=== PATIENT | female | born 1995 | race Caucasian/White ===

== ENCOUNTER 2017-09-14 12:21 | Emergency (ER) | payer MEDICAID ==
[~2017-09-14] VITALS: Ht 165.1 cm; Wt 61.2 kg
[2017-09-14 12:46] VITALS: BP 115/80
[2017-09-14 13:02] VITALS: BP 115/80
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
== END 2017-09-14 13:00 | disposition home or self-care (01) ==
LOC: EMR 13:00
DX: S09.21XA Traumatic rupture of right ear drum, initial encounter (principal); Y04.0XXA Assault by unarmed brawl or fight, initial encounter; Y92.9 Unspecified place or not applicable
CPT/HCPCS: 99282

== ENCOUNTER 2018-04-12 16:31 | Emergency (ER) | payer MEDICAID ==
[~2018-04-12] VITALS: Ht 162.6 cm; Wt 59.0 kg
--- NOTE | 2018-04-12 17:17 | Emergency Room Report ---
History of Present Illness General Chief Complaint: Lower Extremity Injury Source: Patient Present Illness HPI 20-year-old female patient presents ER complaining of left foot pain. Reports that 2 days ago she dropped a 45 pound weight on her foot. Reports pain with ambulation since that time. Reports bruising and swelling over her left foot. Denies ankle or calf pain. Reports has been icing her foot. Denies taking any pain medication. Reports she has been working at both of her jobs which require her to be on her feet. Denies fever, chest pain, shortness of breath. Allergies: Coded Allergies: No Known Allergies (Unverified , 09/14/17) Patient History Past Medical History: see triage record Last Menstrual Period: unknown Reviewed Nursing Documentation: PMH: Agreed; PSxH: Agreed Nursing Documentation-PMH Past Medical History: No History, Except For Review of Systems All Other Systems: negative except mentioned in HPI Physical Exam Vital Signs Date Time Temp Pulse Resp B/P (MAP) Pulse Ox O2 Delivery O2 Flow Rate FiO2 04/12/18 16:59 98.5 70 16 103/72 96 Room Air 98.4 Sp02 EP Interpretation: reviewed, normal General Appearance: well appearing, no apparent distress, alert, GCS 15, non- toxic Head: normocephalic, atraumatic Eyes: bilateral eye normal inspection, bilateral eye PERRL ENT: hearing grossly normal, normal pharynx, no angioedema, normal voice, uvula midline, moist mucus membranes Neck: full range of motion Respiratory: lungs clear, normal breath sounds, no rhonchi, no respiratory distress, no accessory muscle use, no wheezing, speaking full sentences Cardiovascular #1: regular rate, rhythm, no edema Cardiovascular #2: 2+ dorsalis pedis (R), 2+ dorsalis pedis (L) Musculoskeletal: back normal, digits/nails normal, gait/station normal, normal range of motion, no calf tenderness, Krissy's Sign negative, swelling - proximal left forefoot, ecchymosis, other - NVI, cap refill less than 2 seconds, negative syndesmotic squeeze test, no tenderness to palpation over posterior lateral malleolus, no erythema, tender - dorsum of left forefoot over metatarsals 2-4 Neurologic: alert, oriented x3, responsive, motor strength/tone normal, sensory intact Psychiatric: mood/affect normal Skin: no rash Medical Decision Making PA Attestation Dr. Barr is my supervising Physician whom patient management has been discussed with. Diagnostic Impression: Primary Impression: Foot contusion ER Course Pt. presents to the ED c/o left foot pain. Ddx considered but are not limited to fracture, sprain, strain, contusion, dislocation. No erythema, no warmth to touch, no fever, nontoxic appearing, low suspicion for septic joint. Vital signs: are WNL, pt. is afebrile Ordered X-ray and pain medication. ER COURSE Provided with pain medication. An X-ray of the left foot shows acute fracture per the preliminary reading. Likely contusion causing pain symptoms. Bret wrap was applied to the right foot and was checked afterwards by me showing good alignment and support with distal neurovascular functioning intact. Crutches provided. Patient instructed on RICE method: rest, ice, compression, elevation. Patient instructed on rest, ice and heat. Patient instructed to be WBAT Work note provided. Contact information for orthopedic urgent care provided, follow-up with urgent care if unable to followup with primary care provider and get referral to clinical data specialist. Followup with primary care provider. Discuss referral to ortho/pain management/ PT as needed. Discuss further imaging with MRI/CT as needed. DISCHARGE: -Rx provided for Ibuprofen for pain symptoms. At this time pt. is stable for d/c to home. Patient is resting comfortably, in no acute distress, nontoxic appearing, talking without difficulty. Will provide printed patient care instructions, and any necessary prescriptions. Patient instructed to follow with primary care provider in 3 - 5 days and to request further follow-up as needed. Care plan and follow up instructions have been discussed with the patient prior to discharge. Take medications as directed. Patient questions asked and answered. Patient reports understanding and agreement to treatment plan. ER precautions given, patient instructed to return to ER immediately for any new or worsening of symptoms. - Please note that this Emergency Department Report was dictated using [employer] Foundation[employer] room agent technology software, occasionally this can lead to erroneous entry secondary to interpretation by the dictation equipment. Other X-Ray Diagnostic Results Other X-Ray Diagnostic Results : X-Ray ordered: foot left # of Views/Limited Vs Complete: 3 View Indication: Pain EP Interpretation: Yes PA Xray: Interpretation reviewed, by supervising MD, and agrees with findings. Interpretation: no dislocation, no soft tissue swelling, no fractures Impression: No acute disease PA Scribedilma Text Mo Woo PA-C Last Vital Signs Date Time Temp Pulse Resp B/P (MAP) Pulse Ox O2 Delivery O2 Flow Rate FiO2 04/12/18 16:59 98.5 70 16 103/72 96 Room Air 98.4 Status: improved Disposition: HOME, SELF-CARE Condition: Stable Scripts Ibuprofen* (MOTRIN*) 600 Mg Tablet 600 MG ORAL Q8H PRN for For Pain, #30 TAB 0 Refills Prov: Wei Woo 04/12/18 Patient Instructions: Foot Contusion Additional Instructions: Patient instructed to follow up with primary care provider and discuss further referral to orthopedics/physical therapy/pain management as needed. If unable to followup with PCP, followup with orthopedic urgent care in 5-7 days , call to schedule appointment. Patient instructed on RICE method: rest, ice, compression, elevation. Patient instructed to WBAT. Take medications as directed. Patient questions asked and answered. ER precautions given, patient instructed to return to ER immediately for any new or worsening of symptoms. [facility] [address] [facility] [address] [facility], [address] [email or web address] Wei Woo Apr 12, 2018 17:17
[2018-04-12] MEDS ORDERED: Acetaminophen 500mg (ES) tab ORAL ONE (17:30)
[2018-04-12] MEDS ORDERED: IBUPROFEN600 MG ORAL (18:22)
[2018-04-12 18:40] VITALS: BP 103/72
--- NOTE | 2018-04-13 12:15 | Diagnostic Imaging Report ---
Indication: Foot pain Comparison: None Findings: 3 views of the left foot were obtained. No acute fractures, malalignment, erosions or periostitis are identified. Soft tissues are unremarkable. Impression: No acute findings
== END 2018-04-12 18:40 | disposition home or self-care (01) ==
LOC: EMR 18:09
DX: S90.32XA Contusion of left foot, initial encounter (principal); W22.8XXA Striking against or struck by other objects, initial encounter
CPT/HCPCS: 99282

== ENCOUNTER 2019-03-13 21:09 | Emergency (ER) | payer MEDICAID ==
[~2019-03-13] VITALS: Ht 160 cm; Wt 59.0 kg
[~2019-03-13 21:09] MED LIST: IBUPROFEN600 MG ORAL; NKM
[2019-03-13 21:45] VITALS: BP 115/73
--- NOTE | 2019-03-13 21:45 | NUR ---
ED Nurse Note: Patient walked into ED c/o upper abdominal pain that she first felt while at the gym, describes it as a sharp pressure like pain, denies any nausea or diarrhea, happened while exercising, rates her pain a 6/10 pain. patient is alert adn roiented x4, ambulatory with a steady gait, VSS
--- NOTE | 2019-03-13 22:21 | Emergency Room Report ---
History of Present Illness General Chief Complaint: Abdominal Pain Source: Patient Present Illness HPI Is a 23-year-old female with no past medical history. She presents with complaint abdominal pain. Onset was acute. She was at the gym standing after she did some leg press. She felt swelling and a pop in her left upper quadrant area. Afterward to start spreading throughout the whole abdomen. Then it became severe sharp pain. Pain is 9 out of 10. No nausea no vomiting. No fever chills. Made it worse. Palpation made it worse. Sitting still made it better. Allergies: Coded Allergies: No Known Allergies (Unverified , 09/14/17) Patient History Past Medical History: see triage record, old chart reviewed Past Surgical History: none Pertinent Family History: none Social History: Denies: smoking Last Menstrual Period: 02/26/19 Now: No Immunizations: other Reviewed Nursing Documentation: PMH: Agreed; PSxH: Agreed Nursing Documentation-PMH Past Medical History: No History, Except For Review of Systems Eye: Denies: eye pain, blurred vision ENT: Denies: ear pain, nose congestion, throat swelling Respiratory: Denies: cough, shortness of breath Cardiovascular: Denies: chest pain, palpitations Gastrointestinal: Reports: abdominal pain; Denies: diarrhea, nausea, vomiting Musculoskeletal: Denies: back pain, joint pain Skin: Denies: rash Neurological: Denies: headache, numbness Endocrine: Denies: increased thirst, increased urine Hematologic/Lymphatic: Denies: easy bruising All Other Systems: negative except mentioned in HPI Physical Exam Vital Signs Date Time Temp Pulse Resp B/P (MAP) Pulse Ox O2 Delivery O2 Flow Rate FiO2 03/13/19 21:37 97.5 70 18 115/73 (87) 98 Room Air vitals normal Sp02 EP Interpretation: reviewed, normal General Appearance: well appearing, no apparent distress, alert Head: normocephalic, atraumatic Eyes: bilateral eye PERRL, bilateral eye EOMI ENT: hearing grossly normal, normal pharynx Neck: full range of motion, supple, no meningismus Respiratory: chest non-tender, lungs clear, normal breath sounds Cardiovascular #1: regular rate, rhythm, no murmur Gastrointestinal: normal bowel sounds, no mass, no organomegaly, no bruit, non- distended, tenderness - diffuse Musculoskeletal: back normal, gait/station normal, normal range of motion Neurologic: alert, oriented x3 Psychiatric: anxious Medical Decision Making Diagnostic Impression: Primary Impression: Abdominal pain Qualified Codes: R10.84 - Generalized abdominal pain ER Course Abdominal pain. Most likely a muscle strain working out evidence of any internal injury. No infection. Will discharge home. CT/MRI/US Diagnostic Results CT/MRI/US Diagnostic Results : Imaging Test Ordered: CT abdomen pelvis Impression Read by radiologist. Negative. Last Vital Signs Date Time Temp Pulse Resp B/P (MAP) Pulse Ox O2 Delivery O2 Flow Rate FiO2 03/13/19 21:37 97.5 70 18 115/73 (87) 98 Room Air Status: improved Disposition: HOME, SELF-CARE Condition: Stable Scripts Ibuprofen* (MOTRIN*) 600 Mg Tablet 600 MG ORAL THREE TIMES A DAY, #30 TAB 0 Refills Prov: Abdelrahman Llanos MD 03/13/19 Hydrocodone/Acetaminophen 5-325* (HYDROCODONE/ACETAMINOPHEN 5-325*) 1 Each Tablet 1 TAB ORAL Q6H PRN for For Pain, #10 TAB 0 Refills Prov: Abdelrahman Llanos MD 03/13/19 Additional Instructions: Follow-up with your doctor in 7 days. No work out for a week. Return if symptoms worsen. Abdelrahman Llanos MD Mar 13, 2019 22:21
[2019-03-13] MEDS ORDERED: Ketorolac 30mg Inj IV ONE (22:30)
[2019-03-13] MEDS ORDERED: Morphine Sulfate 4mg/ml Inj (IV USE ONLY) IVP ONE (22:30)
[2019-03-13 22:58] LABS: BASOPHILS % (AUTO) 0.7 % (0.0-2.0); EOSINOPHILS % (AUTO) 1.9 % (0.0-3.0); HEMATOCRIT 43.3 % (37.0-47.0); HEMOGLOBIN 16.4 G/DL (12.0-16.0); LYMPHOCYTES % (AUTO) 35.5 % (20.0-45.0); MEAN CORPUSCULAR VOLUME 89 FL (80-99); NEUTROPHILS % (AUTO) 55.9 % (45.0-75.0); PLATELET COUNT 199 K/UL (150-450); RED BLOOD COUNT 4.88 M/UL (4.20-5.40); WHITE BLOOD COUNT 7.4 K/UL (4.8-10.8)
[2019-03-13 23:02] LABS: APPEARANCE,URINE CLEAR; BILIRUBIN, URINE NEGATIVE (NEGATIVE); COLOR,URINE PALE YELLOW; GLUCOSE, URINE (UA) NEGATIVE (NEGATIVE); KETONES,URINE 1+ (NEGATIVE); LEUKOCYTE ESTERASE ,URINE NEGATIVE (NEGATIVE); NITRITE,URINE NEGATIVE (NEGATIVE); PH,URINE 5 (4.5-8.0); PROTEIN,URINE NEGATIVE (NEGATIVE); UROBILINOGEN,URINE NORMAL MG/DL (0.0-1.0)
[2019-03-13 23:19] LABS: ANION GAP 12 mmol/L (5-15); BLOOD UREA NITROGEN 15 mg/dL (7-18); CALCIUM 9.5 MG/DL (8.5-10.1); CARBON DIOXIDE 25 MMOL/L (21-32); CHLORIDE 103 MMOL/L (98-107); CREATININE 0.8 MG/DL (0.55-1.30); POTASSIUM 3.6 MMOL/L (3.5-5.1); SODIUM 140 MMOL/L (136-145)
[2019-03-13 23:23] LABS: ALANINE AMINOTRANSFERASE 23 U/L (12-78); ALBUMIN 4.6 G/DL (3.4-5.0); ALBUMIN/GLOBULIN RATIO 1.2 (1.0-2.7); ALKALINE PHOSPHATASE 53 U/L (46-116); ASPARTATE AMINO TRANSFERASE 23 U/L (15-37); BILIRUBIN,TOTAL 0.8 MG/DL (0.2-1.0)
--- NOTE | 2019-03-13 23:32 | Diagnostic Imaging Report ---
Indication: Abdominal pain Technique: Spiral acquisitions obtained through the abdomen and pelvis. No oral contrast utilized, per emergency room physician request No IV contrast utilized, per referring physician request.. Multiplanar reconstructions were generated. Total dose length product 615.55 mGycm. CTDIvol(s) 11.66 mGy. Dose reduction achieved using automated exposure control Comparison: None Findings: The appendix is normal. There is a small amount of free pelvic fluid. No evidence of diverticulosis or diverticulitis. No small bowel distention. No free intraperitoneal gas. Distal esophagus, stomach, duodenum are unremarkable. Lack of IV contrast limits assessment of the the solid organs. The liver, gallbladder, bile ducts, pancreas, spleen, adrenals, kidneys are unremarkable. No pelvic mass or adenopathy. No retroperitoneal or mesenteric mass or adenopathy. Equivocal mild bladder wall thickening, most likely an artifact of under distention The included lung bases are clear. The bones are unremarkable. Impression: Trace free pelvic fluid, most likely physiologic Equivocal mild bladder wall thickening, most likely artifact of under distention, cystitis possible Otherwise negative This agrees with the preliminary interpretation provided overnight by [facility] teleradiology service. The CT scanner at [facility] is accredited by the [employer] and the scans are performed using protocols designed to limit radiation exposure to as low as reasonably achievable to attain images of sufficient resolution adequate for diagnostic evaluation.
[2019-03-13] MEDS ORDERED: IBUPROFEN600 MG ORAL (23:52)
[2019-03-13] MEDS ORDERED: HYDROCODON-ACE1 EA15 ORAL (23:52)
[2019-03-13 23:55] VITALS: BP 112/70
--- NOTE | 2019-03-13 23:55 | NUR ---
ER DISCHARGE NOTE: Patient is cleared to be discharged per ERMD, pt is aox4, on room air, with stable vital signs. pt was given dc and prescription instructions, pt was able to verbalize understanding, pt id band and iv site removed without complications. pt is able to ambulate with steady gait. pt took all belongings.
== END 2019-03-13 23:55 | disposition home or self-care (01) ==
LOC: EMR 22:28
DX: R10.84 Generalized abdominal pain (principal)
CPT/HCPCS: 36415; 74176; 80053; 81003; 81025; 83690; 85025; 96374; 96375; J1885; J2270; J2405; Z7502; 99284

== ENCOUNTER 2019-08-08 21:06 | Emergency (ER) | payer MEDICAID ==
[~2019-08-08] VITALS: Ht 165.1 cm; Wt 59.0 kg
[~2019-08-08 21:06] MED LIST changes: +HYDROCODON-ACE1 EA15 ORAL
[2019-08-08 22:15] VITALS: BP 114/72
--- NOTE | 2019-08-08 22:15 | NUR ---
ED Nurse Note: Pt walked into ED from home for c/o deviated septum s/p mechanical fall at 0500 today. Pt states she fell onto her face this morning. Septum is deviated to the L at this time and swelling noted. Pt is able to breathe normally through nose, no SOB. Pt is aaox4, no cardiac or respiratory distress noted. Will continue to monitor.
--- NOTE | 2019-08-08 22:50 | Diagnostic Imaging Report ---
Indication: Orbital and maxillofacial trauma and pain Technique: Continuous helical transaxial imaging of the orbits/maxillofacial structures obtained without intravenous contrast administration. Coronal 2-D reformats were also obtained. Study obtained in a Siemens sensation [address] Automatic Exposure Control was utilized. Total Dose length Product (DLP): [address] Dose Index Volume (CTDIvol): 25 mGy Comparison: None Findings: There is a nondisplaced fracture of the anterior wall the right maxillary sinus (series 7/#24-25). This may be old. Please correlate clinically. There is an old fracture of the left zygomatic arch. There is an old injury of the right zygomatic-maxillary suture, which is normally not visualized. The orbits appear normal. There is a mucosal thickening within the right ethmoid sinus and within the maxillary sinuses bilaterally. There is under pneumatization of the mastoid air cells bilaterally. There is sclerosis of the mastoid bone and opacification of the residual maxillary air cells as well as both middle ear cavities. Findings consistent with mastoiditis and otitis media. This is likely an acute on chronic. IMPRESSION: Apparent nondisplaced fracture of the anterior wall the right maxillary sinus, the zygomaticomaxillary suture and the left zygomatic arch. These are likely old. Please correlate clinically. Bilateral otitis media/acute on chronic mastoiditis as described above. Chronic sinusitis. The CT scanner at [facility] is accredited by the [employer] and the scans are performed using dose optimization techniques as appropriate to a performed exam including Automatic Exposure control.
[2019-08-08] MEDS ORDERED: IBUPROFEN600 MG ORAL (23:21)
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
[2019-08-08 23:45] VITALS: BP 114/72
--- NOTE | 2019-08-08 23:45 | NUR ---
ER DISCHARGE NOTE: Patient is cleared to be discharged per ERMD, pt is aox4, on room air, with stable vital signs. pt was given dc and prescription instructions, pt was able to verbalize understanding, pt id band removed. pt is able to ambulate with steady gait. pt took all belongings.
== END 2019-08-08 23:45 | disposition home or self-care (01) ==
LOC: EMR 22:05
DX: S00.33XA Contusion of nose, initial encounter (principal); S02.401A Maxillary fracture, unspecified side, initial encounter for closed fracture; W19.XXXA Unspecified fall, initial encounter; Y92.9 Unspecified place or not applicable
CPT/HCPCS: 70486; Z7502; 99284

== ENCOUNTER 2020-03-04 17:53 | Emergency (ER) | payer MEDICAID ==
[~2020-03-04] VITALS: Ht 165.1 cm; Wt 63.0 kg
[2020-03-04 18:04] VITALS: BP 122/71
--- NOTE | 2020-03-04 18:06 | NUR ---
ED Nurse Note: pt walked in to ER from home due to Lt rib cage pain 02/11 x 10 days. pt denied injury. pt aao x4 and ambulatory. skin clean and intact. calm and cooperative. no cardiac or pulmonary distress noted at this time. pt denied chest pain, SOB, cough. pt refused to wear hospital gown.
--- NOTE | 2020-03-04 18:41 | Emergency Room Report ---
History of Present Illness General Chief Complaint: Pain Source: Patient Present Illness HPI 24 YO female presents to the ED C/O 02/11 in severity left anterior rib /sternal area pain that is sharp and intermittent and has increased in frequency x 1.5 weeks. Pt. reports pmhx of hypothyroidism. She denies cough, bloody sputum, vomiting, trauma/fall, fevers or chills. Pt. denies bruises or erythema. She denies rash. She denies hx of asthma or smoking. Pt. reports intermittent pain with deep breath. She last felt pain this am. Pt reports she has not taken any OTC medications for her symptoms. She denies cardiac hx. She denies familial cardiac hx. She denies SOB. She denies recent travel or immobilization. She denies estrogen use. Allergies: Coded Allergies: No Known Allergies (Unverified , 09/14/17) COVID-19 Screening Contact w/high risk pt: No Experienced COVID-19 symptoms?: No COVID-19 Testing performed CHILD WATCH ATTENDANT: No Patient History Past Medical History: see triage record Past Surgical History: none Pertinent Family History: none Last Menstrual Period: 02/27/20 Now: No Reviewed Nursing Documentation: PMH: Agreed; PSxH: Agreed Nursing Documentation-PMH Past Medical History: No History, Except For Review of Systems All Other Systems: negative except mentioned in HPI Physical Exam Vital Signs Date Time Temp Pulse Resp B/P (MAP) Pulse Ox O2 Delivery O2 Flow Rate FiO2 03/04/20 17:57 97.7 75 17 115/80 (92) 98 Room Air Sp02 EP Interpretation: reviewed, normal General Appearance: no apparent distress, alert, GCS 15, non-toxic Head: normocephalic, atraumatic Eyes: bilateral eye normal inspection, bilateral eye PERRL ENT: hearing grossly normal, normal voice Neck: full range of motion Respiratory: chest non-tender, lungs clear, normal breath sounds, no respiratory distress, no accessory muscle use, no wheezing, speaking full sentences Cardiovascular #1: regular rate, rhythm, no edema, normal capillary refill Cardiovascular #2: 2+ radial (R), 2+ radial (L) Gastrointestinal: normal bowel sounds, non tender, soft Musculoskeletal: back normal, normal range of motion, no calf tenderness, gait/ station normal, non-tender Neurologic: alert, motor strength/tone normal, oriented x3, sensory intact, responsive, speech normal Psychiatric: judgement/insight normal Skin: no rash, normal color Medical Decision Making PA Attestation Dr. Casey is my supervising Physician whom patient management has been discussed with. Diagnostic Impression: Primary Impression: Pleurisy Additional Impression: Acute nonspecific chest pain with low risk of coronary artery disease ER Course 24 YO female presents to the ED C/O 02/11 in severity left anterior rib /sternal area pain that is sharp and intermittent and has increased in frequency x 1.5 weeks. Pt. reports pmhx of hypothyroidism. She denies cough, bloody sputum, vomiting, trauma/fall, fevers or chills. Pt. denies bruises or erythema. She denies rash. She denies hx of asthma or smoking. Pt. reports intermittent pain with deep breath. She last felt pain this am. Pt reports she has not taken any OTC medications for her symptoms. She denies cardiac hx. She denies familial cardiac hx. She denies SOB. She denies recent travel or immobilization. She denies estrogen use. Ddx considered but are not limited to Fracture, dislocation, contusion, Sprain/ Strain/Spasm, PNA, costochondritis, pleurisy, IN/PE, GERD, just to name a few. Vital signs: are WNL, pt. is afebrile H&PE are most consistent with musculoskeletal injury will perform imaging to r/ o fractures/dislocations. ORDERS: - CXR: - negative for fx, Dislocation, or significant soft tissue injury, per preliminary read in ED, and signed by VALORIE Luna, my supervising physician has reviewed, and agrees with my interpretation. -EK NSR , no acute changes. ED INTERVENTIONS: - IBU 600mg DISCHARGE: At this time pt. is stable for d/c to home. Will provide printed patient care instructions, and any necessary prescriptions. Care plan and follow up instructions have been discussed with the patient prior to discharge. EKG Diagnostic Results Rate: normal - 86 bpm Rhythm: NSR ST Segments: no acute changes ASA given to the pt in ED: No PA Scribe Text This Interpretation was scribed by VALORIE Luna. Chest X-Ray Diagnostic Results Chest X-Ray Diagnostic Results : Chest X-Ray Ordered: Yes # of Views/Limited/Complete: 1 View Indication: Chest Pain EP Interpretation: Yes PA Xray: Interpretation reviewed, by supervising MD, and agrees with findings. Interpretation: no consolidation, no effusion, no pneumothorax, no acute cardiopulmonary disease Impression: No acute disease Electronically Signed by: Andree Luna PA-C Last Vital Signs Date Time Temp Pulse Resp B/P (MAP) Pulse Ox O2 Delivery O2 Flow Rate FiO2 03/04/20 18:04 97.0 86 17 122/71 98 Room Air Status: improved Disposition: HOME, SELF-CARE Condition: Stable Scripts Ibuprofen* (MOTRIN*) 600 Mg Tablet 600 MG ORAL THREE TIMES A DAY, #20 TAB Prov: Andree Luna 03/04/20 Referrals: [facility] Patient Instructions: Medical Screening Exam, Pleurisy Additional Instructions: Take medications as directed. Follow up with a Primary Care Provider in 3-5 days, even if your symptoms have resolved. --Please review list of primary care clinics, if you do not already have a primary care provider Return sooner to ED if new symptoms occur, or current symptoms become worse. - Please note that this Emergency Department Report was dictated using [employer] washer technology software, occasionally this can lead to erroneous entry secondary to interpretation by the dictation equipment. Andree Luna Mar 04, 2020 18:41
--- NOTE | 2020-03-04 18:45 | NUR ---
ED Nurse Note: x-ray at bedside.
--- NOTE | 2020-03-04 19:03 | NUR ---
ED Nurse Note: Received report from Servando GIBBONS. Pt AAOX4, verbally responsive. No SOB, on room air. Safety and comfort provided.
[2020-03-04 19:04] VITALS: BP 120/69
[2020-03-04] MEDS ORDERED: IBUPROFEN600 M1 ORAL (19:18)
[2020-03-04 19:23] VITALS: BP 122/74
--- NOTE | 2020-03-04 19:23 | NUR ---
ED Nurse Note: Pt cleared by ERPA for discharge. DC instructions was given and explained to pt and verbalized understanding of teachings. [facility] All medical deviecs such as ID band removed. Pt is AAO x4, ambulatory and left with all personal belongings. Pt will take uber to home
--- NOTE | 2020-03-05 16:37 | Diagnostic Imaging Report ---
Indication: Chest pain Technique: One view of the chest Comparison: none Findings: Lungs and pleural spaces are clear. Heart size is normal. Impression: No acute process
== END 2020-03-04 19:23 | disposition home or self-care (01) ==
LOC: EMR 18:39
DX: R09.1 Pleurisy (principal); R07.89 Other chest pain; E03.9 Hypothyroidism, unspecified
CPT/HCPCS: 71045; 93005; Z7502; 99283